=== PATIENT | female | born 1980 | race Caucasian/White ===

== ENCOUNTER 2021-12-04 13:13 | Emergency (ER) | payer OTHER ==
[2021-12-04] MEDS ORDERED: ACETAMINOPHEN 500 MG TABLET (FP) PO ONE (13:50)
[2021-12-04] MEDS ORDERED: ONDANSETRON 4 MG TABLET PO ONE (13:50)
[2021-12-04 13:51] VITALS: BP 130/90; PULSE 93; TEMP 98.6; BMI 24.4
[2021-12-04] MEDS ORDERED: ONDANSETRON *ODT* 4 MG TABLET ONE (13:54)
[2021-12-04] MEDS ORDERED: ACETAMINOPHEN 500 MG TABLET (FP) ONE (13:54)
== END 2021-12-04 14:52 | disposition home or self-care (01) ==
LOC: FER 13:13
DX: F10.29 Alcohol dependence with unspecified alcohol-induced disorder (principal)
CPT/HCPCS: 99283-25